=== PATIENT | male | born 1940 | race Caucasian/White ===

== ENCOUNTER 2016-09-18 22:14 | Inpatient (IN) | payer OTHER ==
[~2016-09-18] VITALS: Ht 175.3 cm; Wt 118.8 kg
--- NOTE | ~2016-09-18 | EC ---
PATIENT:BETTYE SUAREZ DATE OF SERVICE: 09/19/16 SEX: M MEDICAL RECORD: [id number] DATE OF : 42 LOCATION:[facility] AGE OF PATIENT: 76 ADMISSION DATE: 09/19/16 REFERRING PHYSICIAN: INTERPRETING PHYSICIAN: ELIE ARREDONDO MD ECHOCARDIOGRAM REPORT ECHO CHARGES 4 ECHO COMPLETE CLINICAL DIAGNOSIS: TACHYCARDIA/WOUND INFECTION/ FEVER ECHOCARDIOGRAPHIC MEASUREMENTS (adult normal given) AC root (d.<3.7cm) 3.4 cm LV Septum d (<1.2 cm> 1.2 cm Valve Excursion 1.5 cm LV Septum (systole) 1.9 cm Left Atria (s.<4.0cm> 3.4 cm LVPW d(<1.2cm) 1.2 cm RV (d.<2.3cm) 2.2 cm LVPW (sytole) 1.7 cm LV diastole(<5.6CM) 5.2 cm MV E-F(>70mm/sec) cm LV systole 2.8 cm LVOT Diameter 1.9 cm MV exc.(>10mm) cm Est.ejection fraction (50-75%) % Pericardial Effusion N DOPPLER: LVIT cm/sec A 111.0cm/sec E 97.0 cm/sec LA cm/sec RVSP 19.0 mmHg LVOT 116 cm/sec AOP1/2T m/s Asc. Ao 170 cm/sec RVOT 68.0 cm/sec RA cm/sec PA 99.0 cm/sec AV Gradient Peak 12.0 mmHg AV Mean 5.5 mmHg AV Area 1.9 cm MV Gradient Peak 5.5 mmHg MV Mean 2.2 mmHg MV Area cm COMMENTS: Furnace Fitter: 1 RISSA DOS SANTOSOE Film Painter: 1 Dr. Arredondo TAPE# PACS TWO-DIMENSIONAL ECHOCARDIOGRAM WITH DOPPLER 1. Left ventricular chamber size is within normal limits. Left ventricular systolic function is normal. Overall ejection fraction is estimated at 55 percent. 2. Left atrium, right atrium, and right ventricular chamber sizes are within normal limits. 3. Valvular structures have normal structure and motion. 4. Doppler interrogation reveals trace mitral regurgitation, trace tricuspid regurgitation; no other valvular insufficiency or stenosis. 5. No evidence of pericardial effusion or left ventricular thrombus. ECHOCARDIOGRAM REPORT [id number] BETTYE SUAREZ 6. No evidence of vegetative endocarditis. ELIE ARREDONDO MD CC: [id number] DICTATION DATE: 09/19/16 1500 FOIL SPOOLER: ROLANDA 09/20/16 1359 ADM IN [place] [id number] [place] [id number]
--- NOTE | ~2016-09-18 | CN ---
PATIENT NAME:BETTYE SUAREZ MEDICAL RECORD: [id number] : 42 LOC[facility] ADMIT DATE: 09/19/16 ACCOUNT: [id number] CONSULTING PHYSICIAN: TEA TAYLOR MD REFERRING PHYSICIAN: LUCAS DELGADO DO DATE OF CONSULTATION: 09/19/2016 CHIEF COMPLAINT: Back pain. HISTORY OF PRESENT ILLNESS: I saw and evaluated the patient in the Emergency Room. I have personally discussed his case with Dr. Warren, the Emergency Room physician as well as with Dr. Delgado, the physician who is going to be admitting. The patient describes some type of trauma recently and he has a large soft eschar of the back. The patient appears to be septic. I think it is likely due to trapped purulence beneath the eschar. The patient describes the pain as constant. It is a 7/10 on the pain scale. The patient wants some type ____ cream to anesthetize the area. I told the patient that because of the eschar, he is not going to get absorption of a local anesthetic. He states he wants it around the margins. I will order him a Lidoderm patch. The patient also has venous stasis insufficiency that is CEAP-5 involving both the lower extremities with eczematous changes as well as lipodermatosclerosis and erythema. He is also complaining of left upper extremity pain. Palpation aggravates it. Nothing alleviates. No radiation of the back pain. REVIEW OF SYSTEMS: No night sweats, no weight loss, no anorexia, no hemoptysis. Positive for fever. Positive for lower extremity pain. Positive for left upper extremity pain. Positive for back pain. Positive for generalized weakness. PAST MEDICAL AND SURGICAL HISTORY: Gout. ALLERGIES: No known drug allergies. HOME MEDICINES: Oxycodone, hydrocodone and indomethacin. PHYSICAL EXAMINATION: GENERAL: The patient appears acutely ill. He also appears chronically ill. VITAL SIGNS: Reviewed ears. EARS: External ears appear normal. NECK: Trachea is midline. CHEST: No intercostal retractions. PULMONARY: Nonlabored, no stridor. ABDOMEN: No peritonitis with movement. EXTREMITIES: No peripheral cyanosis. INTEGUMENT: As described above. PSYCHIATRIC: Normal affect. NEUROLOGIC: Hard of hearing, otherwise nonfocal except for generalized weakness. BACK: No thoracic kyphosis. Large back eschars present, which is soft. I noted no evidence of gangrene. LYMPHATICS: No lymphangitic streaking of the exposed extremities. CONSULT REPORT [id number] BETTYE SUAREZ IMPRESSION: Eschar the back, perhaps a source of sepsis in this patient. PLAN: IV antibiotics. Excisional debridement of back wound. IV antiemetics. IV analgesia. Supportive care. TRANSINT:[id number] Voice Confirmation ID: [id number] DOCUMENT ID: [id number] TEA TAYLOR MD CC: [id number] DICTATION DATE: 09/21/161815 CONTROL CLERK FOOD AND BEVERAGE: 09/21/162249 ADM IN [facility] [address] [place] [address]
--- NOTE | ~2016-09-18 | OP ---
PATIENT NAME: BETTYE SUAREZ MEDICAL RECORD: [id number] :42 LOCATION:[facility] D.2312 ADMISSION DATE:09/19/16 SURGEON: TEA TAYLOR MD OPERATION DATE: 09/19/16 DATE OF OPERATION: 09/21/2016 PREOPERATIVE DIAGNOSIS: Large eschar of back with trapped pus. Please see dimensions below. POSTOPERATIVE DIAGNOSIS: Large eschar of back with no trapped pus. This does not appear to be the source of the patient's sepsis. Please see dimensions below. PROCEDURE: Excisional debridement of eschar of the back. The portions debrided were epidermis eschar as well as dermis. The dimensions of the debridement were 18.5 cm and a lateral dimension as well as 9.5 cm in cephalad caudad dimension. I noted no purulence. SURGEON: Tea Taylor MD VAT SKIMMER: None. BLOOD LOSS: Minimal. ANESTHESIA: General. COMPLICATIONS: None. Initially, I thought the patient had trapped pus deep to the eschar and in fact it was not the case. I have discussed this case personally with Dr. Delgado. I told him that the eschars not the source of the patient's sepsis. We both agreed that this is likely a urinary tract in origin and the patient has UTI infection with sepsis. OPERATIVE COURSE: The patient was conveyed to the operating room electively on 09/21/2016. General anesthesia was induced by anesthesia staff. The patient was placed in the prone position. The back was sterilely prepped and draped. Using a 10 blade, I tangentially excise the eschar as well as some epidermis and dermis. Once, I had sharply debrided back to bleeding viable tissue. I discontinued the excisional debridement. Dimensions were obtained. Sterile dressing was applied. No wound VAC was necessary as this is only a partial thickness skin debridement. The patient was then extubated and conveyed to post-anesthesia care unit where he was in stable condition. TRANSINT:[id number] Voice Confirmation ID: [id number] DOCUMENT ID: [id number] OPERATIVE REPORT [id number] DANIELABETTYE ROBERT MD CC: LUCAS DELGADO DO [id number] DICTATION DATE: 09/21/161818 PRESS MACHINE OPERATOR: 09/21/16 2251 ADM IN [place] [id number] [place] [address]
[2016-09-18 23:29] LABS: HEMATOCRIT 38.7 % (42.0-54.0); HEMOGLOBIN 12.6 g/dL (13.5-17.5); LYMPHOCYTES 4.8 % (15-50); MCH 28.6 pg (26.0-34.0); MCHC 32.6 g/dL (31.0-37.0); MCV 87.8 fL (80.0-100.0); NEUTROPHILS 89.3 % (40-80); RBC 4.41 10x6/uL (4.20-6.10); RDW 14.7 % (11.5-14.5); WBC 12.5 10x3/uL (4.8-10.8)
[2016-09-18 23:30] LABS: PLATELET COUNT 178 10x3/uL (130-400)
[2016-09-18 23:40] LABS: ALBUMIN 2.8 g/dL (3.4-5.0); ANION GAP 13.8 mmol/L (8-16); BILIRUBIN - TOTAL 0.76 mg/dL (0.2-1.3); CALCIUM 8.8 mg/dL (8.5-10.1); CARBON DIOXIDE 19.9 mmol/L (21.0-32.0); CREATININE - SERUM 2.3 mg/dL (0.6-1.3); POTASSIUM - SERUM 4.7 mmol/L (3.5-5.1); PROTEIN - SERUM 6.8 g/dL (6.4-8.2)
[2016-09-19] VITALS (11 sets, daily range): BP systolic 84–160; BP diastolic 41–119; BMI 38.3
[2016-09-19 06:45] LABS: BASOPHILS 0.1 % (0-2); EOSINOPHILS 0.6 % (0-7); HEMATOCRIT 38.6 % (42.0-54.0); IMMATURE GRANULOCYTES 0.6 % (0-5); LYMPHOCYTES 9.5 % (15-50); MCH 28.4 pg (26.0-34.0); MCHC 31.1 g/dL (31.0-37.0); MCV 91.3 fL (80.0-100.0); MEAN PLATELET VOLUME 9.6 fL (7.4-10.4); MONOCYTES 7.6 % (2-11); NEUTROPHILS 81.6 % (40-80); PLATELET COUNT 168 10x3/uL (130-400); RBC 4.23 10x6/uL (4.20-6.10); RDW 15.2 % (11.5-14.5); WBC 14.3 10x3/uL (4.8-10.8)
[2016-09-19 07:11] LABS: ANION GAP 11.2 mmol/L (8-16); CALCIUM 8.4 mg/dL (8.5-10.1); CARBON DIOXIDE 24.6 mmol/L (21.0-32.0); CREATININE - SERUM 2.6 mg/dL (0.6-1.3); POTASSIUM - SERUM 4.8 mmol/L (3.5-5.1)
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
[2016-09-19 12:44] LABS: APPEARANCE CLOUDY (CLEAR); BACTERIA MANY /hpf (NONE SEEN); BILIRUBIN NEGATIVE (NEGATIVE); COLOR YELLOW (YELLOW); EPITHELIAL CELLS OCC /hpf (0-5); GLUCOSE NEGATIVE (NEGATIVE); KETONE NEGATIVE (NEGATIVE); LEUKOCYTE ESTERASE 2+ (NEGATIVE); MUCUS <1+ /lpf (NONE SEEN); NITRITE POSITIVE (NEGATIVE); PROTEIN TRACE mg/dL (NEGATIVE); SPECIFIC GRAVITY 1.015 (1.005-1.020); UROBILINOGEN NORMAL (NORMAL); WHITE CELLS - URINE >50 /hpf (0-5)
--- NOTE | 2016-09-19 17:32 | NUR ---
[facility] notified [facility] admission. Patient not stable for transfer at time of getting bed. Holly placed patient on the list. Jenna El RN, [facility] [phone]
--- NOTE | 2016-09-19 17:37 | NUR ---
PT REPORT REC'D FROM STACI GAGNON RN, PT TO COME TO [id number]
--- NOTE | 2016-09-19 18:15 | NUR ---
REC'D PT FROM ER, PT ON BED. AAOX4. LEFT AC PIV WITH NS INFUSING AT 150 ML/HR. SHIFT ASSESSMENT COMPLETED, SEE FLOW SHEET
--- NOTE | 2016-09-19 18:20 | NUR ---
PREPPED PENIS WITH BETADINE, INSERTED YO CATHETER, YELLOW URINE RETURN, 10CC OF NS INFLATED BALLOON. STAT LOCK PLACED TO RIGHT THIGH, DRAIN BAG SET TO GRAVITY.
[2016-09-19 18:52] LABS: BASOPHILS 0.2 % (0-2); EOSINOPHILS 0.5 % (0-7); HEMATOCRIT 41.5 % (42.0-54.0); IMMATURE GRANULOCYTES 0.9 % (0-5); LYMPHOCYTES 3.6 % (15-50); MCH 28.6 pg (26.0-34.0); MCHC 31.3 g/dL (31.0-37.0); MCV 91.4 fL (80.0-100.0); MEAN PLATELET VOLUME 9.4 fL (7.4-10.4); MONOCYTES 1.4 % (2-11); NEUTROPHILS 93.4 % (40-80); PLATELET COUNT 150 10x3/uL (130-400); RBC 4.54 10x6/uL (4.20-6.10); RDW 15.1 % (11.5-14.5); WBC 6.7 10x3/uL (4.8-10.8)
[2016-09-19] MEDS ORDERED: COZAAR50 MG PO (18:57)
[2016-09-19] MEDS ORDERED: VOLTAREN100 GM TOPICAL (18:57)
[2016-09-19] MEDS ORDERED: XALATAN 0.0052.5 ML EACH EYE (18:57)
[2016-09-19 19:27] LABS: CKMB 30.8 U/L (0.0-3.6)
[2016-09-19 19:36] LABS: CREATINE KINASE 4154 UL (21-232); TROPONIN-I 0.193 ng/mL (0.000-0.060)
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
--- NOTE | 2016-09-19 20:00 | NUR ---
CARLY, CAREGIVER CAME TO DROP OFF CELL PHONE FERRYBOAT TICKET TAKER. GIVEN TO PT
--- NOTE | 2016-09-19 20:15 | NUR ---
SPOKE WITH YASEMIN IN LAB IN REGARDS TO PENDING BLOOD CULTURES. WAS NOTIFIED SHE HAD DRAWN CULTURES AT 1830 WHEN DRAWING FOR OTHER ORDERED TESTS AND THESE WERE NOW SUBMITTED. PT TO BEGIN ABT AND THIS IF RECORDED SUCH ON MAR
--- NOTE | 2016-09-19 21:00 | NUR ---
NO VISITORS AT THIS TIME
--- NOTE | 2016-09-19 21:45 | NUR ---
B/P ELEVATED. PT REPEATEDLY BENDING AND MOVING ARM AND NOT EASILY REDIRECTED. STATES HE JUST WANTS TO GET COMFORTABLE. LEVOPHED HAD BEEN INITIATED BUT PAUSED AT THIS TIME. WILL MONITOR FOR NEED AND RESTART IF SBP<90 OR DBS<[address] DELGADO'S DIRECTION[address]
--- NOTE | 2016-09-19 23:00 | NUR ---
SHIFT REASSESSMENT COMPLETED SEE FLOWSHEET. NO SIGNIFICANT CHANGES. PT CONTINUE TO REQUIRE FREQUENT REDIRECTION TO KEEP ARM STRAIGHT, PT IRRITABLE. DIFFICULT TO OBTAIN ACCURATE B/P WILL CONTINUE TO MONITOR CLOSELY AND OFFER SUPPORT FOR PT.
[2016-09-20] VITALS (79 sets, daily range): BP systolic 79–164; BP diastolic 27–98; Ht 175.3 cm; Wt 118.8 kg
--- NOTE | 2016-09-20 01:00 | NUR ---
PT RESTING BUT NOT SLEEPING. NO SIGNIFICANT CHANGES
--- NOTE | 2016-09-20 03:00 | NUR ---
REASSESSMENT COMPLETED SEE FLOWSHEET. PT SLEEPING LIGHTLY TONIGHT EASILY AWAKEN. RESP REG AND NONLABORED. IS CURRENTLY ON 2MCG OF LOVEPHED SEE FLOWSHEET FOR TITRATION RECORD. PILLOWS USED TO PROVIDE SUPPORT, RELIEVE PRESSURE AND BRIDGE HEELS. ARMS ELEVATED ON PILLOWS.
[2016-09-20 04:39] LABS: BASOPHILS 0.2 % (0-2); EOSINOPHILS 0.5 % (0-7); HEMATOCRIT 36.3 % (42.0-54.0); HEMOGLOBIN 11.4 g/dL (13.5-17.5); IMMATURE GRANULOCYTES 0.4 % (0-5); LYMPHOCYTES 9.4 % (15-50); MCH 28.6 pg (26.0-34.0); MCHC 31.4 g/dL (31.0-37.0); MEAN PLATELET VOLUME 9.6 fL (7.4-10.4); MONOCYTES 8.8 % (2-11); NEUTROPHILS 80.7 % (40-80); RBC 3.99 10x6/uL (4.20-6.10); RDW 15.3 % (11.5-14.5)
[2016-09-20 04:45] LABS: PLATELET COUNT 192 10x3/uL (130-400); WBC 11.4 10x3/uL (4.8-10.8)
[2016-09-20 05:14] LABS: ALKALINE PHOSPHATASE 81 U/L (46-116); ALT (SGPT) 72 U/L (10-68); CALC OSMOLALITY 286 mosm/kg (275-300); CALCIUM 7.8 mg/dL (8.5-10.1); CARBON DIOXIDE 20.7 mmol/L (21.0-32.0); CHLORIDE - SERUM 108 mmol/L (98-107); CHOL - HDL RATIO 3.5 ratio (2.3-4.9); CHOLESTEROL, TOTAL 94 mg/dL (0-200); CKMB 7.3 U/L (0.0-3.6); CREATININE - SERUM 2.2 mg/dL (0.6-1.3); GLUCOSE 129 mg/dL (74-106); HDL CHOLESTEROL 27 mg/dL (32-96); LDL CHOLESTEROL 49 mg/dL (0-100); LDL-HDL RATIO 1.8 ratio (1.5-3.5); PROTEIN - SERUM 5.4 g/dL (6.4-8.2); SODIUM 138 mmol/L (136-145); TRIGLYCERIDE 92 mg/dL (30-200); UREA NITROGEN 38 mg/dL (7-18); eGFR NON AFRICAN AMERICAN 31 mL/min (90-120)
[2016-09-20 05:16] LABS: ALBUMIN 1.9 g/dL (3.4-5.0); CREATINE KINASE 2763 UL (21-232); POTASSIUM - SERUM 5.7 mmol/L (3.5-5.1); TROPONIN-I 0.229 ng/mL (0.000-0.060)
--- NOTE | 2016-09-20 06:00 | NUR ---
CAREGIVER AT BEDSIDE UPDATE GIVEN. PT CONTINUES ON LEVOPHED
--- NOTE | 2016-09-20 07:00 | NUR ---
PT REPORT REC'D, PT CARE ASSUMED. PT AAOX4, LAYING IN BED, C/O PAIN IN BACK RATED 5/10, PT STATES "IT HURTS WHEN I SIT UP." VSS, ROOM AIR. LEFT AC PIV WITH FLUIDS INFUSING, SEE FLOW SHEET. NO REDDNESS OR SIGNS OF INFILTRATION. YO CATHETER FREE OF KINKS TO GRAVITY WITH URINE RETURN. SHIFT ASSESSMENT COMPLETED, SEE FLOW SHEET. ROOM FREE OF CLUTTER, CALL LIGHT IN REACH, BED LOCKED IN LOWEST POSITION, ROOM CLOSE TO NURSES STATION, WILL CONTINUE TO MONITOR PT.
--- NOTE | 2016-09-20 11:00 | NUR ---
PT AAOX4 LAYING IN BED, C/O PAIN RATED 5/10. REASSESSMENT COMPLETED, SEE FLOW SHEET. ROOM FREE OF CLUTTER, CALL LIGHT IN REACH, WILL CONTINUE TO MONITOR PT.
--- NOTE | 2016-09-20 14:07 | NUR ---
DR. TAYLOR AT THE BEDSIDE
--- NOTE | 2016-09-20 15:00 | NUR ---
PT RESTING WITH EYES CLOSED, VSS, ROOM AIR. REASSESSMENT COMPLETED, SEE FLOW SHEET. ROOM FREE OF CLUTTER, CALL LIGHT IN REACH, WILL CONTINUE TO MONITOR PT.
--- NOTE | 2016-09-20 16:00 | NUR ---
PT HAD LG BOWEL MOVEMENT, COMPLETE BED BATH AND LINEN CHANGE.
--- NOTE | 2016-09-20 18:50 | NUR ---
PT RESTING WITH EYES CLOSED, NO C/O PAIN, VSS, TURNED LEVOPHED OFF, WILL CONTINUE TO MONITOR PT.
--- NOTE | 2016-09-20 19:00 | NUR ---
Received patient resting in bed with eyes closed, assessment completed per flowsheet. Patient is AO x4, calm and resting. Eyes PERRLA @ 4mm with brisk response, patient wears glasses. S1/S2 noted Sinus Tach on telemetry with HR 105, rhythmic and regular. Breathing is even and unlabored on room air with O2 sat 94%, Lung sounds diminished all lobes. Abdomen is round and soft with bowel sounds active x4, non-tender. Colin secured with concentrated yellow urine noted in collection. Weakness noted all extremities with all pulses palpable, cap refill < 3 sec. Upper back wound unstageable with eschar noted, 16cm x 13 cm x 0mm. Mid back reddened area/bruise noted. Reddened area bilateral lower extremities, no SCD/FERN patient refuses. 20g PIV noted R AC, patent with NS @ 150ml/hr infusing. C/O back pain 04/13 from fall prior to hospitalization, repositioned for comfort with PRN to be given when available. No further needs at this time, all VSS and will continue to monitor.
--- NOTE | 2016-09-20 21:00 | NUR ---
No visitors at this time, patient resting in bed with eyes closed. Patient repositioned in bed, no s/s of distress. All VSS and will continue to monitor.
--- NOTE | 2016-09-20 22:55 | NUR ---
Reassessement completed per flowsheet, patient resting in bed with eyes closed. S1/S2 noted Sinus Tach on telemetry with HR 103, rhythmic and regular. Breathing is even and unlabrored on room air with O2 sat 95%, lung sounds diminished throughout. All Pulses palpable with cap refill < 3 sec. Chronic pain 2/10 upper/mid back, denies pain medication at this time. Repostioned for comfort, no further needs at this time. All VSS and will continue to monitor.
[2016-09-21] VITALS (24 sets, daily range): BP systolic 87–160; BP diastolic 44–118
--- NOTE | 2016-09-21 | NUR ---
Patient placed on NPO status for Debridement 09/21/16.
--- NOTE | 2016-09-21 01:15 | NUR ---
Patient pulled out IV L AC, resited to L forearm. Patent with fluids infusing. Linen change performed, patient tolerated well. Repositioned, no further needs at this time.
--- NOTE | 2016-09-21 03:10 | NUR ---
Reassessment completed per flowsheet, patient resting in bed with eyes closed. S1/S2 noted NSR on telemetry with HR 91, rythmic and regular. Breathing is even and unlabored on room air, O2 sat 97%. Upper back exchar noted, unstageable. Lower back bruises/reddened area, dressing CDI. IV L forearm, patent with NS @ 150ml/hr. All pulses palpable with cap refill < 3 sec, skin warm to touch. Denies pain or other needs at this time, all VSS and will continue to monitor.
--- NOTE | 2016-09-21 05:00 | NUR ---
Patient resting in bed with eyes closed, breathing is even and unlabored on room air. AM labs collected without difficulty, patient repositioned for comfort. No further needs at this time, all VSS and will continue to monitor.
[2016-09-21 05:27] LABS: BASOPHILS 0.2 % (0-2); EOSINOPHILS 0.4 % (0-7); HEMATOCRIT 35.2 % (42.0-54.0); IMMATURE GRANULOCYTES 0.3 % (0-5); LYMPHOCYTES 8.3 % (15-50); MCH 28.5 pg (26.0-34.0); MCHC 31.3 g/dL (31.0-37.0); MCV 91.2 fL (80.0-100.0); MEAN PLATELET VOLUME 9.8 fL (7.4-10.4); MONOCYTES 7.3 % (2-11); NEUTROPHILS 83.5 % (40-80); PLATELET COUNT 201 10x3/uL (130-400); RBC 3.86 10x6/uL (4.20-6.10); RDW 15.6 % (11.5-14.5); WBC 11.2 10x3/uL (4.8-10.8)
[2016-09-21 05:39] LABS: ALBUMIN 1.9 g/dL (3.4-5.0); ANION GAP 13.2 mmol/L (8-16); BILIRUBIN - TOTAL 0.7 mg/dL (0.2-1.3); CALCIUM 7.9 mg/dL (8.5-10.1); CARBON DIOXIDE 23.2 mmol/L (21.0-32.0); CREATININE - SERUM 2.1 mg/dL (0.6-1.3); POTASSIUM - SERUM 5.4 mmol/L (3.5-5.1); PROTEIN - SERUM 4.8 g/dL (6.4-8.2)
--- NOTE | 2016-09-21 08:47 | NUR ---
TEMP 101.4 CALLED TO , NO NEW ORDERS
--- NOTE | 2016-09-21 10:31 | NUR ---
Nutrition follow-up: Pt NPO for surgery Diet had advanced to ADA consistent CHO with po intake ~60% of average of 3 meals Labs reviewed RDN following.
--- NOTE | 2016-09-21 14:22 | NUR ---
NO NOTED DISTESS AT PRESENT.
--- NOTE | 2016-09-21 16:08 | NUR ---
* Is the patient Alert and Oriented? Yes 0 * How many steps to enter\exit or inside your home? Ramp 0 * PCP Dr. Morton 0 * Pharmacy [facility] 0 * Preadmission Environment Home Alone 0 * ADLs Independent 0 * Equipment Bedside Commode Cane Rolling Walker Shower Chair Wheelchair 0 * List name and contact numbers for known caregivers / representatives who currently or will assist patient after discharge: POA - Jarrell Saravia [phone] * Community resources currently utilized Other 0 * Please name any agencies selected above. [facility]: Caregiver - Khushbu [phone] * Can the patient safely return to the preadmission environment? Yes 0 * Has this patient been hospitalized within the prior 30 days at any hospital? No Patient Name: BETTYE SUAREZ Admission Status: ER Accout number: [id number] Admission Date: 09-19-2016 : 1941 Admission Diagnosis: Attending: SHILOH Current LOS: 2 Primary Insurance: [facility] [facility] Discharge Planning Comments: CM met with patient to assess dc plans/needs. Patient is somewhat lethargic. Called and spoke with Khushbu (caregiver) via telephone. Khushbu works for [employer] & is patient's caregiver. She reports she provides care 2 hours every day, but often provides more than 2 hours depending on patients needs. She reports patient lives alone. He has a walker, SC, Cane, BSC, WC. He currently does not have home health services. She states patient's POA is Jarrell Saravia. Call placed to [facility] - confirmed patient is on transfer list but they state they do not have any beds available and will call should one become available. CM will follow & assist as needed. Associate Sales Representative: Joy Chin
--- NOTE | 2016-09-21 17:19 | NUR ---
TO OR VIA BED AND TWO OR STAFF
--- NOTE | 2016-09-21 18:28 | NUR ---
REMAINS IN OR
--- NOTE | 2016-09-21 18:57 | NUR ---
200CC OF YELLOW URINE IN BAG ON ADMIT
--- NOTE | 2016-09-21 19:15 | NUR ---
RETURNED FROM OR VIA BED. VSS. DROWSY. SR ON THE MONITOR. OR DRESSING TO BACK CDI. C/L IN REACH. ONOTIAL ASSMNT COMPLETED. SEE GLOWSHEET FOT ALL FINDINGS. HOB UP. CONT CURRENT POC.
--- NOTE | 2016-09-21 21:00 | NUR ---
HS MEDS GIVEN. FSBS WITHIN PARAMETERS. NO NEEDS VOICED. VSS. CONT POC.
--- NOTE | 2016-09-21 23:30 | NUR ---
REASSESSMENT COMPLETED. SEE FLOWSHEET FOR ALL FINDINGS. RESTING WITH NO DISTRESS. VSS. RESP UNLABORED. LUNGS CTA. ON RA. SR ON THE MONITOR. PULSES WEAK X4. BACK DRESSING CDI. PAIN INCREASING. PRN NORCO TO BE GIVEN. TURNED AND REPOSIIONED. HOB UP. C/L AND CLEAR LIQUIDS IN REACH. CONT CURRENT POC.
[2016-09-22] VITALS (23 sets, daily range): BP systolic 91–173; BP diastolic 42–109
--- NOTE | 2016-09-22 01:00 | NUR ---
RESTING WITH NO DISTRESS. VSS. PRN NORCO EFFECTIVE WITH PAIN CONTROL. NO NEEDS VOICED. REPOSITIONED FOR SKIN INTEGRITY. HOB UP. C/L IN REACH. BED ALARM ON. CONT CURRENT POC.
--- NOTE | 2016-09-22 03:30 | NUR ---
REASSESSMENT COMPLETED. SEE FLOWSHEET FOR ALL FINDINGS. RESTING WITH NO DISTRESS. VSS. RESP UNLABORED. LUNGS CTA. ON RA. SR ON THE MONITOR. PULSES WEAK X4. BACK DRESSING CDI. PAIN LEVEL ACCEPTABLE. TURNED AND REPOSIIONED. HOB UP. C/L AND CLEAR LIQUIDS IN REACH. CONT CURRENT POC.
[2016-09-22 04:19] LABS: BASOPHILS 0.1 % (0-2); EOSINOPHILS 1.5 % (0-7); HEMOGLOBIN 10.2 g/dL (13.5-17.5); IMMATURE GRANULOCYTES 0.2 % (0-5); LYMPHOCYTES 10.3 % (15-50); MCH 28.2 pg (26.0-34.0); MCHC 30.9 g/dL (31.0-37.0); MCV 91.2 fL (80.0-100.0); MEAN PLATELET VOLUME 9.8 fL (7.4-10.4); MONOCYTES 7.2 % (2-11); NEUTROPHILS 80.7 % (40-80); PLATELET COUNT 185 10x3/uL (130-400); RBC 3.62 10x6/uL (4.20-6.10); RDW 15.8 % (11.5-14.5)
[2016-09-22 04:41] LABS: ALBUMIN 1.8 g/dL (3.4-5.0); ANION GAP 14.2 mmol/L (8-16); BILIRUBIN - TOTAL 0.41 mg/dL (0.2-1.3); CALCIUM 8.2 mg/dL (8.5-10.1); CARBON DIOXIDE 20.6 mmol/L (21.0-32.0); CREATININE - SERUM 1.6 mg/dL (0.6-1.3); POTASSIUM - SERUM 4.8 mmol/L (3.5-5.1); PROTEIN - SERUM 5.5 g/dL (6.4-8.2)
--- NOTE | 2016-09-22 05:12 | NUR ---
RESTING WITH NO DISTRESS. VSS. NO NEEDS VOICED. REPOSITIONED FOR COMFORT. HOB UP. C/L IN REACH. CONT CURRENT POC.
--- NOTE | 2016-09-22 16:54 | NUR ---
[phone] [phone] Primary nurse, Remi, [facility]. Reportedly the patient was going to surgery this AM and was scheduled to come after surgery. The primary nurse nor the CM were aware of a bed assignment or acceptance. [facility] stated they would call back. Primary nurse advised the patient of transfer. The patient is not certain he wants to go. States he is confused. CM spoke with DR Murphy to advise of [facility] bed. He stated the patient did not want to go this AM. He also documented the patient is confused. TC to his POA, Jarrell Boone, at [phone]. No answer. Left VM. Await CB. Could not locate POA paperwork on the chart. TC to nursing supervisor public message service, Noel. TC to Jolene Cornell to ascertain the appropriate action under the above circumstance in regard to patient's rights. NO call back from [facility] or POA at this time.
--- NOTE | 2016-09-22 18:37 | NUR ---
CALLING REPORT TO [facility] IN [facility]
--- NOTE | 2016-09-22 19:25 | NUR ---
CHANGED BACK WOUND DRESSING, SPOKE WITH PATIENT AND HE IS WILLIING TO GO TO [facility]
--- NOTE | 2016-09-22 20:30 | NUR ---
UNABLE TO SIGN D/C INSTRUCTIONS AT THIS TIME. LETHARGIC FROM PAIN MEDS GIVEN ON DAY SHIFT. WILL MONITOR. VERBALIZED CONSENT TO TRANSFER TO [facility].
--- NOTE | 2016-09-23 00:16 | NUR ---
LEFT VIA AMBULANCE STRETCHER. [facility] AT [place] [facility] CALLED AND INFORMED OF THE PATIENT LEAVING AT THIS TIME. PATIENT CONFUSED AT THIS TIME. REORIENTED. INFORMED AMBULANCE STAFF OF LAST BLOOD SUGAR OF 120, NOT NEEDED TO BE TREATED.
== END 2016-09-23 00:20 | disposition short-term general hospital (02) | DRG 853 ==
LOC: D.ER 22:14 → D.ICU 09-19 11:20 → D.SDCHOLD 09-19 11:20 → D.ICU 09-19 17:23
PROVIDERS: Family Medicine; Surgery; ADMIT Family Medicine
PROC: 0T9B70Z Drainage of Bladder with Drainage Device, Via Natural or Artificial Opening (ICD-10-PCS; 2016-09-19)
PROC: 0HB6XZZ Excision of Back Skin, External Approach (ICD-10-PCS; principal; 2016-09-21 12:15)
DX: A41.9 Sepsis, unspecified organism (principal); I21.4 Non-ST elevation (NSTEMI) myocardial infarction; N39.0 Urinary tract infection, site not specified; N17.9 Acute kidney failure, unspecified; E87.1 Hypo-osmolality and hyponatremia; I24.8 Other forms of acute ischemic heart disease; L03.312 Cellulitis of back [any part except buttock and flank]; B96.20 Unspecified Escherichia coli [E. coli] as the cause of diseases classified elsewhere; E11.65 Type 2 diabetes mellitus with hyperglycemia; R41.0 Disorientation, unspecified; I83.12 Varicose veins of left lower extremity with inflammation; I83.11 Varicose veins of right lower extremity with inflammation; Z91.81 History of falling